=== PATIENT | female | born 1960 | race Hispanic/Latino ===

== ENCOUNTER 2018-05-23 12:36 | Inpatient (IN) | payer MEDICAID, OTHER ==
[2018-05-23 13:19] LABS: BASO # 0.1 K/uL (0.0-0.2); BASO % 1.2 % (0.0-2.0); EOS # 0.1 K/uL (0.0-0.7); HEMOGLOBIN 12.4 g/dL (11.0-16.0); LYMPH # 1.5 K/uL (1.0-4.3); LYMPH % 30.7 % (20.0-40.0); MEAN CELL VOLUME 97.8 fL (81.0-99.0); MEAN CORPUSCULAR HEMOGLOBIN 33.5 pg (27.0-31.0); MEAN CORPUSCULAR HGB CONC 34.3 g/dL (33.0-37.0); MEAN PLATELET VOLUME 7.5 fL (7.2-11.7); MONO # 0.4 K/uL (0.0-0.8); MONO % 7.9 % (0.0-10.0); NEUT # 2.7 K/uL (1.8-7.0); NEUT % 57.2 % (50.0-75.0); RBC 3.71 Mil/uL (3.80-5.20); RED CELL DISTRIBUTION WIDTH 21.1 % (11.5-14.5); WHITE BLOOD COUNT 4.7 K/uL (4.8-10.8)
[2018-05-23 13:34] LABS: ALB/GLOB RATIO 1.6 (1.0-2.1); ALBUMIN 4.7 g/dL (3.5-5.0); ALT/SGPT 45 U/L (9-52); AST/SGOT 72 U/L (14-36); BLOOD UREA NITROGEN 7 mg/dL (7-17); CALCIUM 8.9 mg/dl (8.6-10.4); GFR NON-AFRICAN AMERICAN > 60
[2018-05-23 13:43] LABS: BARBITURATES, UR NEGATIVE (NEGATIVE); OPIATES, UR NEGATIVE (NEGATIVE); PHENCYCLIDINE, UR NEGATIVE (NEGATIVE)
[2018-05-23 14:11] LABS: BENZODIAZEPINES, UR POSITIVE (NEGATIVE)
--- NOTE | 2018-05-23 14:46 | C.PDOC ---
History Of Present Illness 57 y/o female presents to the ER requesting detox from ETOH. Patient states that she drinks ETOH daily. Patient reports that she is prescreened. Denies having suicidal ideation, homicidal ideation, and active physical complaints. Time Seen by Provider: 05/23/18 12:48 Chief Complaint (Nursing): Substance Abuse History Per: Patient History/Exam Limitations: no limitations Past Medical History Reviewed: Historical Data, Nursing Documentation, Vital Signs Vital Signs: Last Vital Signs Temp 98.2 F 05/23/18 12:41 Pulse 88 05/23/18 12:41 Resp 18 05/23/18 12:41 BP 152/83 H 05/23/18 12:41 Pulse Ox 96 05/23/18 12:41 - Medical History PMH: HTN Denies: Diabetes, Hepatitis, HIV, Seizures, Sexually Transmitted Disease Other Surgeries: Hx of surgeries Family History: States: No Known Family Hx - Social History Hx Alcohol Use: Yes Hx Substance Use: No - Immunization History Hx Tetanus Toxoid Vaccination: No Hx Influenza Vaccination: No Hx Pneumococcal Vaccination: Yes Review Of Systems Except As Marked, All Systems Reviewed And Found Negative. Psych: Negative for: Suicidal ideation Physical Exam - Physical Exam Appears: Chronically Ill, Other (tremulous) Skin: Normal Color, Warm, Dry Head: Atraumatic, Normacephalic Eye(s): bilateral: Normal Inspection Nose: Normal Oral Mucosa: Moist, Other (ETOH on breath) Neck: Supple Chest: Symmetrical Cardiovascular: Rhythm Regular Respiratory: Normal Breath Sounds, No Rales, No Rhonchi, No Wheezing Gastrointestinal/Abdominal: Normal Exam, Soft, No Tenderness, No Guarding, No Rebound Neurological/Psych: Oriented x3, Normal Speech ED Course And Treatment - Laboratory Results Result Diagrams: 05/23/18 13:11 05/23/18 13:11 Lab Interpretation: Abnormal (etoh 68, tox + benzo's from Librium given in ED) Urine POC: Negative O2 Sat by Pulse Oximetry: 96 (RA) Pulse Ox Interpretation: Normal Progress Note: Labs and UA ordered and reviewed. Disposition Doctor Will See Patient In The: Hospital Counseled Patient/Family Regarding: Studies Performed, Diagnosis - Disposition Disposition: HOSPITALIZED Disposition Time: 14:46 Condition: GOOD - Clinical Impression Clinical Impression: Alcohol abuse - Scribe Statement The provider has reviewed the documentation as recorded by the Scribe Usha Huerta Provider Attestation: All medical record entries made by the Haileyibe were at my direction and personally dictated by me. I have reviewed the chart and agree that the record accurately reflects my personal performance of the history, physical exam, medical decision making, and the department course for this patient. I have also personally directed, reviewed, and agree with the discharge instructions and disposition.
[2018-05-23 14:50] LABS: SQUAMOUS EPITHIAL 3 /hpf (0-5); URINE BACTERIA RARE (<OCC); URINE BILIRUBIN NEGATIVE (NEGATIVE); URINE BLOOD 2+ (NEGATIVE); URINE CLARITY Clear (Clear); URINE COLOR Yellow (YELLOW); URINE GLUCOSE (UA) NORMAL (Normal); URINE HYALINE CAST 0-2 /lpf (0-2); URINE LEUKOCYTE ESTERASE NEG Leu/uL (Negative); URINE PROTEIN 2+ mg/dL (NEGATIVE); URINE UROBILINOGEN NORMAL mg/dL (0.2-1.0)
--- NOTE | 2018-05-23 14:56 | PCM.BM ---
Treatment Plan Problems - Problems identified on initial assessmt potential for alcohol withdrawal Date Initiated: 05/23/18 Time Initiated: 14:55 Status: Active Treatment assets and liabiliti Patient Assests: cooperative, cognitively intact Patient Liabilities: substance abuse, medical problems - Milieu Protocol Maintain good personal hygiene: daily Encourage regular showers, daily Remind patient to perform daily oral care, daily Assist patient to perform ADL's Conduct patient checks and document Observation sheet: Q15 minutes Maintain personal safety: every shift Educate patient to report safety concerns to staff, every shift Monitor environment for contraband/sharps Medication safety: Monitor for expected outcome, potential side effects: every shift, Assess barriers to learning: every shift, Assess readiness for medication education: every shift
[2018-05-23] MEDS ORDERED: Aluminum Hydroxide/Magnesium Hydroxide Susp (30 mL) PO PRN (18:11)
[2018-05-24] MEDS: Magnesium Hydroxide Susp 30 ml UD PO SCH ×2 (10:05→17:42)
[2018-05-24] MEDS: Multiple Vitamins Tab PO SCH (10:06)
--- NOTE | 2018-05-24 11:25 | PCM.PSYCH ---
Initial Psychiatric Evaluation - Initial Psychiatric Evaluation Type of Admission: Voluntary Legal Status: Capacity Chief Complaint (in patient's own words): I want to stop drinking History of Present Illness and Precipitating Events: Patient seen, chart reviewed, case discussed HPI: Patient is a 52-year-old , unemployed white female with no children who lives at home with her mother and twin sister. 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 The patient had her first drink at the age of 18 but it only became a problem in 2012 when she got . For the past 2.5 years, the patient drinks 1 gallon of rum every 2- 3 days, with her last use two nights ago at 3 am. The patient was sober for 21 days but started drinking again 1.5 months ago. The patient states that her longest period of sobriety was for 30 days in 2015. The patient denies any heroin, cocaine, marijuana, or other drug use but smokes 6 cigarettes per day for the past 2 years. The patient was in detox once before in September 2015 but has never been to rehab. The patient has a sponsor and was going to AA every day until 1 month ago. The patient states that she tried to detox on her own a couple weeks ago by stopping drinking abruptly, but that caused her to throw up every 20 minutes for 4 days and to get shakes, but the patient denies any history of seizures. The patient has an aunt and 2 cousins with a history of alcohol abuse. The patient says that she is depressed but denies any suicidal ideations. The patient was prescribed Prozac in the past but no longer takes it because she does not have insurance. The patient currently does not see a psychiatrist and has never been hospitalized for psychiatric illnesses. Past Psych History: Depression Past Medical History: denies Family Psych History: twin sister with anxiety and depression Current Medications: Active Medications Generic Name Dose Route Start Last Admin Trade Name Freq PRN Reason Stop Dose Admin Al Hydrox/Mg Hydrox/Simethicone 30 ml 05/23/18 18:11 Maalox 30 Ml PO TID PRN Indigestion / Heartburn Chlordiazepoxide 25 mg 05/23/18 18:24 05/24/18 10:07 Librium PO 25 mg Q4 PRN Administration ALCOHOL WITHDRAWAL Chlordiazepoxide 25 mg 05/24/18 00:00 05/24/18 06:18 Librium PO 05/28/18 23:59 25 mg Q6 SHERI Administration Taper Clonidine HCl 0.1 mg 05/23/18 18:08 05/23/18 18:31 Catapres PO 0.1 mg Q4H PRN Administration Symptoms of alcohol withdrawl Dicyclomine HCl 10 mg 05/23/18 18:11 Bentyl PO Q6 PRN Muscle spasm Folic Acid 1 mg 05/24/18 10:00 05/24/18 10:05 Folic Acid PO 1 mg DAILY SHERI Administration Gabapentin 300 mg 05/24/18 10:00 05/24/18 10:06 Neurontin PO 300 mg BID SHERI Administration Hydroxyzine HCl 50 mg 05/23/18 18:13 05/24/18 06:18 Atarax PO 50 mg QID PRN Administration Anxiety Ibuprofen 600 mg 05/23/18 18:11 Motrin Tab PO Q6 PRN Pain, moderate (4-7) Influenza Virus Vaccine 60 mcg 05/26/18 10:00 Fluzone Quad 2505-2369 IM 05/26/18 10:01 .ONCE ONE Loperamide HCl 2 mg 05/23/18 18:11 Imodium PO Q8 PRN Diarrhea Magnesium Hydroxide 30 ml 05/24/18 10:00 05/24/18 10:05 Milk Of Magnesia PO 05/26/18 10:01 Not Given BID [facility] Multivitamins 1 tab 05/24/18 10:00 05/24/18 10:06 Hexavitamin PO 1 tab DAILY SHERI Administration Ondansetron HCl 4 mg 05/23/18 18:11 05/23/18 18:31 Zofran Tab PO 4 mg Q8 PRN Administration Nausea/Vomiting Pneumococcal Polyvalent Vaccine 0.5 ml 05/26/18 10:00 Pneumovax 23 Vaccine IM 05/26/18 10:01 .ONCE ONE Thiamine HCl 100 mg 05/24/18 10:00 05/24/18 10:06 Vitamin B1 Tab PO 100 mg DAILY SHERI Administration Trazodone HCl 50 mg 05/23/18 22:00 05/23/18 21:21 Desyrel PO 50 mg HS PRN Administration Insomnia Past Psychiatric History - Past Psychiatric History Previous Treatment History: Inpatient Pertinent Medical Hx (Current Medical&Sleep Prob, Allergies): Allergies Allergy/AdvReac Type Severity Reaction Status Date / Time penicillamine AdvReac Intermediate VOMITING Verified 05/23/18 12:46 Sulfa (Sulfonamide AdvReac Intermediate VOMITING Verified 05/23/18 12:46 Antibiotics) No Known Home Med 05/23/18 Review of Systems - Review of Systems All systems: reviewed and no additional remarkable complaints except - Psychiatric Psychiatric: Anxiety, Irritability Mental Status Examination - Personal Presentation Personal Presentation: Looks stated age - Affect Affect: Constricted - Motor Activity Motor Activity: Calm - Reliability in Providing Information Reliability in Providing Information: Fair - Speech Speech: Organized - Mood Mood: Anxious - Formal Thought Process Formal Thought Process: No Impairment - Obsessions/Compulsions Obsessions: No Compulsions: No - Cognitive Functions Orientation: Person, Place, Situation, Time Sensorium: Alert Attention/Concentration: Attentive Abstract Thinking: [place] Estimate of Intelligence: Below average Judgement: Imparied, as evidence by: Poor judgement, Imparied, as evidence by: Lack of insight into illness - Risk Risk: Withdrawal, Diminished functioning - Limitations Limitations: Living alone DSM 5 DX - DSM 5 DSM 5 Diagnosis: Alcohol withdrawal Alcohol use d/osevere Depression - Recommended/Plan of Treatment Treatment Recommendations and Plan of Treatment: Taper with Librium Gabapentin for augmentation if needed As needed medication All risks, benefits and alternatives of the meds discussed and the patient agreed and understood Attend groups and activities Supportive therapy and psychoeducation SD for abstinence CBT for relapse prevention Encourage MAT Refer to rehab or IOP, and self-help groups Teach healthy lifestyle methods, i.e. diet, exercise, meditation - Smoking Cessation Smoking Cessation Initiated: No
[2018-05-25] MEDS: Multiple Vitamins Tab PO SCH (10:16)
[2018-05-25] MEDS: Magnesium Hydroxide Susp 30 ml UD PO SCH (10:18)
--- NOTE | 2018-05-25 12:36 | PCM.PYCHPN ---
Psychiatric Progress Note - Psychiatric Progress Note Patient seen today, length of contact: 15 minutes Patient Chief Complaint: I was feeling a little shaky earlier but no I am okay. Problems Identified/Issues Discussed: Patient seen, chart reviewed, case discussed with the staff. Issues related to illness and treatment were discussed with the patient and staff. Reported compliant with treatment with no adverse effect. Tolerating treatment very well. Reported feeling little better. Reported she was feeling shaky earlier but now she is feeling better. Calm and cooperative. Awake, alert and oriented x3. Mood reported as okay. Affect appropriate. Speech soft with good eye contact. Memory intact. Aftercare discussed with the patient. Denied any delusions, auditory or visual hallucinations, no suicidal ideations or homicidal ideation at the time of evaluation. Medical Problems: None reported Diagnostic Results: Reviewed DSM 5 Symptoms Update: Some improvement with treatment Medication Change: No Medical Record Reviewed: Yes Mental Status Examination - Cognitive Function Orientation: Person, Place, Situation, Time Memory: Intact Attention: WNL Concentration: WNL Association: [facility] Fund of Knowledge: [facility] Decription of patient's judgement and insights: Fair - Mood Mood: Anxious (Less than before) - Affect Affect: Other (Appropriate) - Speech Speech: Appropriate - Formal Thought Process Formal Thought Process: No Impairment Psychotic Thoughts and Behaviors: None - Suicidal Ideation Suicidal Ideation: No - Homicidal Ideation Homicidal Ideation: No Goal/Treatment Plan - Goal/Treatment Plan Need for Continued Stay: Remain at risks for inpatient hospitalization, Discharge may exacerbated symptoms, Severe functional impairment Progress Toward Problem(s) and Goals/Treatment Plan: Some improvement with treatment. Patient education. Supportive therapy. CBT for relapse prevention. [place] for abstinence. Continue treatment as before. Estimated Date of D/C: 05/29/18 - Smoking Cessation Smoking Cessation Initiated: No
[2018-05-26] MEDS: Multiple Vitamins Tab PO SCH (09:29)
[2018-05-26] MEDS ORDERED: Influenza Vaccine 60 MCG/0.5 ML SYR (3 yr & up) IM ONE (10:00)
[2018-05-26] MEDS ORDERED: Pneumococcal 23-Valent Vaccine IM ONE (10:00)
--- NOTE | 2018-05-26 21:29 | PCM.PYCHPN ---
Psychiatric Progress Note - Psychiatric Progress Note Patient seen today, length of contact: 15 minutes Patient Chief Complaint: I am feeling better. Problems Identified/Issues Discussed: Patient seen, chart reviewed, case discussed with the staff. Issues related to illness and treatment were discussed with the patient and staff. Reported compliant with treatment with no adverse effect. Tolerating treatment very well. Reported feeling little better. Reported feeling better. Calm and cooperative. Awake, alert and oriented x3. Mood reported as okay. Affect appropriate. Speech soft with good eye contact. Memory intact. Aftercare discussed with the patient. Denied any delusions, auditory or visual hallucinations, no suicidal ideations or homicidal ideation at the time of evaluation. Medical Problems: None reported Diagnostic Results: Reviewed DSM 5 Symptoms Update: Some improvement with treatment. Medication Change: No Medical Record Reviewed: Yes Mental Status Examination - Cognitive Function Orientation: Person, Place, Situation, Time Memory: Intact Attention: WNL Concentration: WNL Association: [facility] Fund of Knowledge: [facility] Decription of patient's judgement and insights: Fair - Mood Mood: Neutral - Affect Affect: Other (Appropriate) - Speech Speech: Appropriate - Formal Thought Process Formal Thought Process: No Impairment Psychotic Thoughts and Behaviors: None - Suicidal Ideation Suicidal Ideation: No - Homicidal Ideation Homicidal Ideation: No Goal/Treatment Plan - Goal/Treatment Plan Need for Continued Stay: Remain at risks for inpatient hospitalization, Discha rge may exacerbated symptoms, Severe functional impairment Progress Toward Problem(s) and Goals/Treatment Plan: Some improvement with treatment. Patient education. Supportive therapy. CBT for relapse prevention. [place] for abstinence. Continue treatment as before. Estimated Date of D/C: 05/29/18 - Smoking Cessation Smoking Cessation Initiated: No
[2018-05-27] MEDS: Multiple Vitamins Tab PO SCH (09:27)
--- NOTE | 2018-05-27 11:29 | PCM.PYCHPN ---
Psychiatric Progress Note - Psychiatric Progress Note Patient seen today, length of contact: 15 minutes Medication Change: Yes Medical Record Reviewed: Yes Mental Status Examination - Cognitive Function Orientation: Person, Place, Situation, Time Memory: Intact Attention: WNL Concentration: WNL Association: WNL Fund of Knowledge: WNL - Mood Mood: Neutral - Affect Affect: Other (Appropriate) - Speech Speech: Appropriate - Formal Thought Process Formal Thought Process: No Impairment - Suicidal Ideation Suicidal Ideation: No - Homicidal Ideation Homicidal Ideation: No Goal/Treatment Plan - Goal/Treatment Plan Need for Continued Stay: Remain at risks for inpatient hospitalization, Discharge may exacerbated symptoms, Severe functional impairment Estimated Date of D/C: 05/29/18
[2018-05-27 14:04] VITALS: RESP 18
--- NOTE | 2018-05-28 09:05 | PCM.PYCHDC ---
Mental Status Examination - Mental Status Examination Orientation: Person Discharge Summary - Discharge Note Consultations:: List each consultation separately and include: 1. Reason for request. 2. Findings. 3. Follow-up Summary of Hospital Course include:: 1. Description of specific treatment plan utilized for patients during their course of treatmen. 2. Summarize the time- course for resolution of acute symptoms and/or regressed behaviors. 3. Describe issues identified and worked on during hospitalization. 4. Describe medication utilized. 5. Describe medical problems identified and treated. 6. Reassessment of suicide risk Summary of Hospital Course: She will go to [facility] - Final Diagnosis (DSM 5) Condition upon Discharge: GOOD Disposition: HOME/ ROUTINE Prescriptions/Medication Reconciliation: FLUoxetine [Prozac] 20 mg PO DAILY #30 cap Gabapentin [Neurontin] 300 mg PO BID #60 cap hydrOXYzine HCl [Atarax] 50 mg PO BID PRN #30 tab PRN Reason: Anxiety Propranolol [Inderal] 10 mg PO BID PRN #10 tab PRN Reason: severe anxiety traZODone [Desyrel] 50 mg PO HS PRN #30 tab PRN Reason: Insomnia
[2018-05-28] MEDS: Multiple Vitamins Tab PO SCH (09:08)
[2018-05-28 11:38] VITALS: BP 148/92; PULSE 83; TEMP 98.9; O2SAT 98
== END 2018-05-28 10:45 | disposition home or self-care (01) | DRG 754 ==
LOC: C.ER 12:36 → C.7D 14:45
PROVIDERS: ADMIT Psychiatry & Neurology Psychiatry; ATTEND Psychiatry & Neurology Psychiatry
PROC: GZ56ZZZ Individual Psychotherapy, Supportive (ICD-10-PCS; principal; 2018-05-23)
DX: F32.9 Major depressive disorder, single episode, unspecified (principal); I10 Essential (primary) hypertension; F10.230 Alcohol dependence with withdrawal, uncomplicated; F17.210 Nicotine dependence, cigarettes, uncomplicated; Y90.3 Blood alcohol level of 60-79 mg/100 ml; F19.10 Other psychoactive substance abuse, uncomplicated